=== PATIENT | female | born 1980 | race Caucasian/White ===

== ENCOUNTER → 2022-10-08 13:50 | Outpatient (BNVA) | payer BC, MEDICAID, SELFPAY | PROVIDERS: PCP Nurse Practitioner Family; Visit Provider Internal Medicine | DX: E05.90 Thyrotoxicosis, unspecified without thyrotoxic crisis or storm (principal); Z86.39 Personal history of other endocrine, nutritional and metabolic disease; E06.3 Autoimmune thyroiditis; R73.03 Prediabetes | CPT/HCPCS: 36415; 84439; 84443; 84480 ==

== ENCOUNTER → 2022-11-05 13:23 | Outpatient (BNVA) | payer BC, MEDICAID, SELFPAY | PROVIDERS: PCP Nurse Practitioner Family; Referring Provider Nurse Practitioner Family; Visit Provider Orthopaedic Surgery | DX: M25.562 Pain in left knee (principal) | CPT/HCPCS: 73560; 73565 ==

== ENCOUNTER 2022-11-26 07:08 | Outpatient (CLI) | payer BC, MEDICAID, SELFPAY ==
--- NOTE | 2022-11-26 07:15 | MR_ITS ---
WS: [id number] MRI LEFT KNEE HISTORY: pain, pain medial knee. COMPARISON: Radiograph 11/05/2022 Anterior cruciate ligament: Intact. Posterior cruciate ligament: Intact. Medial collateral ligament: Intact. Posterior lateral corner structures: Intact. Medial menisci: Anterior horn is normal. In the periphery posterior horn of the medial meniscus there is an area of soft tissue thickening and increased T2 signal. This is adjacent fluid like tract. Lateral meniscus: Intact. Normal signal, size and shape. Extensor mechanism: Distal quadriceps tendon and patellar tendons are intact. Fluid and soft tissue: Very tiny amount of fluid in the suprapatellar bursa. There is a lobulated cys tic mass with septations extending over length of 4.4 cm along the medial posterior knee. This cystic mass has tract-like extension adjacent to the posterior horn the medial meniscus. This is not a typi amanuel location for a Camejo's cyst. Suspect this could be a ganglion or meniscal cyst associated with an occult tear of the posterior horn medial meniscus. There is an additional smaller cystic mass measur ing 1.0 cm adjacent to the medial femoral condyle. There is an additional tract which extends towards the joint space. This could be a separate component of a meniscal cyst or ganglion. Osseous and articular structures: Patellofemoral compartment: Normal. Medial compartment: No significant narrowing or loss of cartilage. Lateral compartment: No significant narrowing or loss of cartilage. MR/MR knee LT wo con* [id number] IMPRESSION: 1. Multiloculated cystic collection along the medial knee. Cystic components a re adjacent to the femoral condyle but also extend below the knee joint. There is a small fluid tract that extends towards the posterior horn of the medial me niscus. Suspect meniscal tear resulting in lobulated meniscal cyst. Not a typic al appearance or location for Camejo's cyst. Ganglion also within the differenti al. 2. There is thickening and increased T2 signal in the periphery of the posteri or horn medial meniscus. Suspicious for tear.
== END 2022-11-26 07:09 | disposition home or self-care (01) ==
LOC: RAD 07:14
PROVIDERS: PCP Nurse Practitioner Family; Visit Provider Orthopaedic Surgery
DX: M25.562 Pain in left knee (principal); M25.462 Effusion, left knee
CPT/HCPCS: 73721

== ENCOUNTER 2023-05-06 11:25 | Outpatient (CLI) | payer BC, MEDICAID, SELFPAY ==
[2023-05-06 12:38] LABS: Thyroid Stimulating Hormone 3.55 uIU/mL (0.27-4.20)
[2023-05-07 06:59] LABS: T3 Total 117 ng/dL (76-181)
== END 2023-05-06 11:26 | disposition home or self-care (01) ==
PROVIDERS: PCP Nurse Practitioner Family; Visit Provider Internal Medicine
DX: Z86.39 Personal history of other endocrine, nutritional and metabolic disease (principal); E05.00 Thyrotoxicosis with diffuse goiter without thyrotoxic crisis or storm; E05.90 Thyrotoxicosis, unspecified without thyrotoxic crisis or storm; E06.3 Autoimmune thyroiditis; R73.03 Prediabetes
CPT/HCPCS: 36415; 84439; 84443; 84480

== ENCOUNTER → 2023-07-24 09:01 | Outpatient (BNVA) | payer BC, MEDICAID, SELFPAY | PROVIDERS: PCP Nurse Practitioner Family; Visit Provider Family Medicine | DX: Z01.818 Encounter for other preprocedural examination (principal) | CPT/HCPCS: 80053; 81003; 85025 ==

== ENCOUNTER 2023-08-06 06:08 | Day surgery (SDC) | payer BC, MEDICAID, SELFPAY ==
[2023-08-06] VITALS (11 sets, daily range): BP systolic 117–153; BP diastolic 69–100; PULSE 72–92; RESP 13–24; TEMP 36.1–36.7; O2SAT 98–100; BMI 39.9
[2023-08-06] MEDS: ketorolac 30 mg/mL INJ IVP (06:38)
[2023-08-06] MEDS: sodium chloride 0.9% 1,000 ML 30 ML IV (06:38)
[2023-08-06] MEDS: scopolamine 1.5 Patch 1 PATCH TRANSDERMA (06:39)
[2023-08-06] MEDS: acetaminophen 1,000 MG/100 ML PIGGYBACK 400 MG IV (06:39)
--- NOTE | 2023-08-06 06:39 | P.ANESASSM_ITS ---
Pre-Anesthetic Assessment Height/Weight: Height 1.55 m Weight 95.889 kg Temp Pulse Resp BP Pulse Ox O2 Del Method 97.3 F L 72 16 153/100 100 Room Air 08/06/23 06:23 08/06/23 06:23 08/06/23 06:23 08/06/23 06:23 08/06/23 06:23 08/06/23 06:27 Operation Date: 08/06/23 07:00 Proposed Procedures p Knee Arthroscopy w/ partial Medial Menisectomy VERSUS REPAIR AND POSSIBLE CYST EXCISION(Left) - Devonte Sosa DO Familial anesthetic complications: None Was Beta Luisito taken within 24 hours: Yes Was Clonidine taken within 24 hours: N/A Last intake: Intake Last Liquid Date 08/05/23 Last Liquid Time 23:00 Last Solid Date 08/05/23 Last Solid Time 22:30 Social No alcohol and No tobacco Exam alert, oriented x 3, clear to auscultation bilaterally and regular rate & rhythm Airway Dentition: full Pulmonary asthma CV/HEM Hypertension GI Gastroesophageal Reflux Disease Metabolic Grave's disease Anesthetic Plan ASA status: 2 Anesthesia: General Risk of > 500 ml blood loss (7ml/kg in children): No Medications/Allergies Home Medications Medication Instructions Recorded Confirmed Last Taken Type albuterol sulfate 90 mcg/actuation 2 puff inhalation QID shortness of 01/29/22 08/05/23 07/06/23 History aerosol inhaler (Proventil HFA) breath atorvastatin 20 mg tablet 20 mg PO DAILY 01/29/22 08/06/23 08/05/23 History cetirizine 10 mg tablet (Zyrtec) 10 mg PO DAILY PRN allergies 01/29/22 08/06/23 08/05/23 History fluticasone propionate 50 2 spray intranasal DAILY 01/29/22 08/05/23 08/05/23 History mcg/actuation nasal spray,suspension (Flonase Allergy Relief) lisinopril 5 mg tablet 5 mg PO DAILY 01/29/22 08/06/23 08/05/23 History metoprolol succinate 25 mg 25 mg PO DAILY 01/29/22 08/06/23 08/05/23 History tablet,extended release 24 hr montelukast 10 mg tablet 10 mg PO DAILY 01/29/22 08/06/23 08/05/23 History pantoprazole 40 mg tablet,delayed 40 mg PO DAILY 01/29/22 08/06/23 08/05/23 History release topiramate 25 mg sprinkle capsule 25 mg PO BID 01/29/22 08/06/23 08/05/23 Histo ry (Topamax) Allergies Allergy/AdvReac Type Severity Reaction Status Date / Time Pork/Porcine Containing Allergy ADR-Vomitin Verified 08/05/23 12:01 Products g shellfish derived Allergy ADR-Vomitin Verified 08/05/23 12:01 g Flu Allergy Intermediate Vomiting Uncoded 07/24/23 08:46 Current Medications Generic Name Dose Route Start Last Admin Trade Name Freq PRN Reason Stop Dose Admin Sodium Chloride 1,000 mls @ 30 mls/hr 08/06/23 06:30 08/06/23 06:38 Sodium Chloride 0.9% IV 08/07/23 06:29 30 mls/hr .Q24H ROBYN Administration PFSH Anesthesia Medical History Essential (primary) hypertension Depression Asthma Headache disorder Low back pain Hyperlipidemia delivery delivered Anxiety ADD (attention deficit disorder) Surgical History History of bilateral tubal ligation Hx of tonsillectomy Family History Father Hypertension Mother Hypertension Hyperlipidemia Grandmother Breast cancer Social History Smoking and tobacco/nicotine status: never used tobacco/nicotine Second hand smoke exposure: No Alcohol intake: current Alcohol intake frequency: few times a week Alcohol type: beer Substance/Drug Use: never Adopted: No Caregiver/support person: No Lives independently: Yes Household members: spouse Housing: Manufactured/Mobile home Marital status: Number of children: 1 Highest education level completed: Bachelor's Degree service: No Current occupational status: employed Female Reproductive History Date of last menstrual period: 07/21/23 Data Anesthesia Cardiac Studies: No Data to Display
--- NOTE | 2023-08-06 06:58 | P.HP_ITS ---
Same Day Surgery H&P Indication for Procedure/HPI DATE OF PROCEDURE: August 06, 2023 CHIEF COMPLAINT/INDICATIONFOR SURGICAL PROCEDURE: Left knee medial meniscus tear PREOP DIAGNOSIS: Left knee medial meniscus tear PLANNED PROCEDURE: Operation Date: 08/06/23 07:00 Proposed Procedures p Knee Arthroscopy w/ partial Medial Menisectomy VERSUS REPAIR AND POSSIBLE CYST EXCISION(Left) - Devonte Sosa DO Medications/Allergies* Home Medications Medication Instructions Recorded Confirmed Type albuterol sulfate 90 mcg/actuation 2 puff inhalation QID shortness of 01/29/22 08/05/23 History aerosol inhaler (Proventil HFA) breath atorvastatin 20 mg tablet 20 mg PO DAILY 01/29/22 08/06/23 History cetirizine 10 mg tablet (Zyrtec) 10 mg PO DAILY PRN allergies 01/29/22 08/06/23 History fluticasone propionate 50 2 spray intranasal DAILY 01/29/22 08/05/23 History mcg/actuation nasal spray,suspension (Flonase Allergy Relief) lisinopril 5 mg tablet 5 mg PO DAILY 01/29/22 08/06/23 History metoprolol succinate 25 mg 25 mg PO DAILY 01/29/22 08/06/23 History tablet,extended release 24 hr montelukast 10 mg tablet 10 mg PO DAILY 01/29/22 08/06/23 History pantoprazole 40 mg tablet,delayed 40 mg PO DAILY 01/29/22 08/06/23 History release topiramate 25 mg sprinkle capsule 25 mg PO BID 01/29/22 08/06/23 History (Topamax) Allergies/Adverse Reactions Allergy/AdvReac Type Severity Reaction Status Date / Time Pork/Porcine Containing Allergy ADR-Vomitin Verified 08/05/23 12:01 Products g shellfish derived Allergy ADR-Vomitin Verified 08/05/23 12:01 g Flu Allergy Intermediate Vomiting Uncoded 07/24/23 08:46 Current Medications: Generic Name Dose Route Start Last Admin Trade Name Freq PRN Reason Stop Dose Admin Sodium Chloride 1,000 mls @ 30 mls/hr 08/06/23 06:30 08/06/23 06:38 Sodium Chloride 0.9% IV 08/07/23 06:29 30 mls/hr .Q24H ROBYN Administration Pertinent History/Comorbid Conditions* Medical History (Updated 04/05/23 @ 15:58 by Devonte Sosa DO) Essential (primary) hypertension Depression Asthma Headache disorder Low back pain Hyperlipidemia delivery delivered Anxiety ADD (attention deficit disorder) Surgical History (Updated 02/20/22 @ 13:17 by Arina Philip MD) History of bilateral tubal ligation Hx of tonsillectomy Family History (Updated 01/29/22 @ 14:06 by Magaly Rodriguez LPN) Hyperlipidemia Mother Breast cancer Grandmother Hypertension Father Mother Social History Smoking and tobacco/nicotine status: never used tobacco/nicotine Second hand smoke exposure: No Alcohol intake: current Alcohol intake frequency: few times a week Alcohol type: beer Substance/Drug Use: never Adopted: No Caregiver/support person: No Lives independently: Yes Household members: spouse Housing: Manufactured/Mobile home Marital status: Number of children: 1 Highest education level completed: Bachelor's Degree service: No Current occupational status: employed Pertinent Exam Findings alert, oriented x 3, operative site marked and procedure specific exam findings Examination of the left knee examination of the left knee she has tenderness over her medial joint line. Pain with Kory's Stable varus valgus stress Negative Seth's patella tracks well, negative apprehension or crepitus Recommendations Surgery/Procedure today Other Plans: Plan to proceed with the OR today for left knee diagnostic and surgical arthroscopy with partial medial meniscectomy versus repair and possible cyst ex cision. Patient understands incidence procedure risk benefits complication alternatives with surgery through shared decision making was proceed with surgical intervention. All questions answered. Coding Level of Care Code Acute Code for Lino Gamboa
[2023-08-06] MEDS: ceFAZolin 2,000 MG in sodium chloride 0.9% (plus) 50 ML 100 MG IV (07:01)
[2023-08-06 07:14] LABS: OR HCG Qualitative Urine Negative (Negative)
[2023-08-06] MEDS: lidocaine-epi 2% 20 mL INJ 40 ML INJECTION (07:33)
--- NOTE | 2023-08-06 08:25 | PM.OP ---
Operative Report Date of procedure: August 06, 2023 Surgeon: Devonte Sosa DO Chief Substation Operator: Akash Sosa PA-C: PA was necessary for assistance in this case with leg positioning to execute the procedure, assistance with instrumentation and meniscal fixation as well as to assist with wound closure and dressing application. Procedure: Preoperative diagnosis: Left knee medial meniscus tear Post-op diagnosis: Left?knee?medial meniscus tear Left?knee?extensive synovitis Procedure done: Left?knee?diagnostic and surgical arthroscopy medial meniscus repair (all inside technique) Left?knee?diagnostic and surgical arthroscopy with extensive synovectomy of the medial lateral and patellofemoral compartments Left?knee?diagnostic and surgical arthroscopy with bone marrow stimulation Surgeon: Devonte Sosa DO Estimated blood loss: 1 Tourniquet: No tourniquet was used IV fluids: See anesthesia record Complications: None Findings: See operative report narrative Condition: stable Disposition: same day Brief History: Patient is a 43-year-old female with Left?knee?pain.? Patient has failed conservative treatment who has been worked up for Left??knee?pain in the outpatient setting. MRI findings consistent with tear of the medial meniscus. talked in the office about treatment options patient would like to proceed with a Left?knee?diagnostic and surgical arthroscopy with partial medial meniscectomy versus repair. patient understand the ins and outs of the procedure the risk benefits complication alternatives to treatment options.? Understanding risk of surgery they agree to proceed with surgical intervention.? ? Understanding this and patient agree to proceed with surgical intervention all questions answered. Procedure: Patient seen and evaluated in the preoperative holding area.? Consent was reviewed and signed with patient.? Correct extremity was then marked.? Patient seen evaluated Anesthesia Department once cleared for surgery patient was taken back to the operative suite.? Patient was transported onto the OR table in supine position.? All bony prominences well-padded patient was appropriate secured to the bed.? Once appropriately anesthetized a nonsterile tourniquet was applied to the Left thigh.? The Left lower extremity was then prepped and draped in standard orthopedic fashion.? Final timeout performed.? Patient received appropriate preoperative antibiotics. Patient received local anesthetic of lidocaine with epinephrine into the joint as well as around the portal sites.? No tourniquet was inflated A standard 2 portal vertical incision diagnostic and surgical arthroscopy of the Left?knee?was performed in standard fashion.? Small stab incision made in the inferolateral portal introduced trocar and arthroscope into the suprapatellar pouch.? Suprapatellar pouch was subsequently visualized and found to have significant synovitis but no loose bodies.? Patient had noticeable significant inflamed infrapatellar fat pad and thickening hypertrophic within the patellofemoral compartment.? ?The medial gutter was free of loose bodies I then introduced the arthroscope into the medial compartment.? Within the medial compartment I then established my inferior medial working portal utilizing spinal needle outside in technique.? Once established I then visualized our articular cartilage of the medial compartment with a valgus stress.? Patient was found to have focal area on the medial femoral condyle of grade 2?3 rest of the articular cartilage medially was found to being grade 1 -2 . Next I inspected the meniscus.? With an arthroscopic probe was utilized to visual? all aspects of the meniscus.? Meniscal root was found to be intact.? Meniscus was found to be torn at the body to posterior horn junction.? Patient had a longitudinal tear on the periphery as a result a meniscal probe was inserted and this was found to have significant instability and as a result given her young age as well as cartilage preservation recommended meniscal repair I took an arthroscopic shaver debrided the tear site. I did end up utilizing a spinal needle to perform a fenestration of the MCL for slight increase in opening of the medial joint space in order to allow for limited chondral damage during my repair once this was done I then utilized Arthrex fiber stitch all inside technique I then subsequently placed 2 horizontal mattress stitches within the meniscus across the tear site these had excellent fixation and this was done per Arthrex is procedure and protocol. These had excellent fixation suture ends were then subsequently cut and meniscus was completely repaired I utilized a probe to confirm its excellent fixation. Next, I then performed a synovectomy of the medial compartment.? Given patient's chondromalacia there was areas of unstable articular cartilage and I subsequently performed a chondroplasty with arthroscopic shaver and thermal wand.? This completed medial compartment work. Next a introduced the arthroscope to the intercondylar notch.? PCL and ACL were intact. patient had significant thickening of the infrapatellar fat pad spanning into the medial and lateral compartments.? I then performed an extensive synovectomy with the arthroscopic shaver of the patellofemoral medial and lateral compartments as well as the intercondylar notch. Next I introduced the arthroscope into the lateral compartment the lateral compartment was found to have grade 1 chondromalacia.? Lateral meniscus was found to be intact.? The root was intact.? Given the grade 1 chondromalacia there is no unstable cartilage pieces to perform chondroplasty.? This completed my work of the lateral compartment and then performed a synovectomy of the lateral compartment.? Next of the arthroscope was placed into the lateral gutter and this was free of loose bodies.? Finally I reintroduced the arthroscope into the patellofemoral compartment.? 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 At this point I utilized arthroscopic shaver as well as thermal wand to perform extensive synovectomy of the patellofemoral compartment. This completed my work of the patellofemoral space.? Given patient had meniscal repair in order to provide appropriate healing I elected for bone marrow stimulation utilize thermal wand to debride off the soft tissue off the intercondylar notch in front of the ACL and subsequently utilized a drill with a K wire noted in place multiple drill holes within the inner condyle for bone marrow stimulation for healing. This was then subsequently withdrawn I then thoroughly irrigated the knee. I then switch my portal sites to the medial working portal.? Completed the rest of my synovectomy and the rest of my examination arthroscopy was normal. All fluid was suctioned from the joint.? ?All instruments were withdrawn.? Portal sites were closed with interrupted nylon suture.? portal sites were then covered with with Xeroform 4 x 4's ABD Curlex and Ramón wrap.? Patient was then placed into a Lynn hinged knee brace per meniscal repair protocol patient was then subsequently awakened from anesthesia and taken to PACU in stable condition. Disposition: Patient taken to PACU in stable condition recovering well.? Will receive appropriate discharge structure as well as pain medication postoperatively as well as? DVT prophylaxis.we will have patient follow-up with us in the office in 2 weeks.? Patient placed in [place] brace and will follow meniscal repair protocol . we will toe-touch weightbearing as tolerated to the Left lower extremity.? Patient understands and agrees with current plan.? All questions answered.
--- NOTE | 2023-08-06 08:32 | P.BOP_ITS ---
Date of Procedure: [August 06, 2023] Surgeon: [Dr. Sosa DO] Shell Freezing Machine Operator(s): [Akash Sosa PA-C] Procedure(s) performed: [Left knee surgical diagnostic arthroscopy with medial meniscus repair, bone marrow stimulation and extensive synovectomy] Findings of the procedure(s): [Medial meniscus tear, extensive synovitis] Estimated blood loss: [1 mL] Specimen(s) removed: [N/A] Post-operative diagnosis: [Medial meniscus tear, extensive synovitis procedure went well and as planned.]
--- NOTE | 2023-08-06 08:39 | P.PCN_ITS ---
PACU note Narrative: Patient is a 43-year-old female just underwent left knee surgical diagnostic arthroscopy. Pt transferred to PACU in stable condition. Dressing is dry. Hinged knee brace is on left leg. Pt is awake and alert. pt can wiggle toes and plantarflex and dorsiflex foot. pt able to perform straight leg raise, Femoral nerve intact. Distal pulses are palpable toes are warm and well- perfused. Cap refill is normal and under 2 seconds. Sensation to foot is intact. Pain is controlled. Exam: awake Disposition: discharged
[2023-08-06] MEDS: HYDROcodone-acetaminophen 5-325 mg Tablet 1 TAB PO (09:09)
--- NOTE | 2023-08-06 10:05 | ANE.PACU2 ---
Inpatient post-anesthesia follow up: Airway intact: Yes Vital signs: Temperature 98.1 F Pulse Rate 77 Respiratory Rate 18 Blood Pressure 131/73 Pulse Oximetry 99 Oxygen Delivery Me thod Room Air Oxygen Flow Rate 6 Fraction of Inspir ed Oxygen Hydration adequate: Yes Nausea and vomiting: No Pain level: 1 Mental status: Baseline
== END 2023-08-06 10:04 | disposition home or self-care (01) ==
PROVIDERS: Anesthesiology; PCP Nurse Practitioner Family; Visit Provider Student in an Organized Health Care Education/Training Program
PROC: (CPT 29870; principal; 2023-08-06 07:00)
DX: S83.242A Other tear of medial meniscus, current injury, left knee, initial encounter (principal); X58.XXXA Exposure to other specified factors, initial encounter; I10 Essential (primary) hypertension; E78.5 Hyperlipidemia, unspecified; K21.9 Gastro-esophageal reflux disease without esophagitis
CPT/HCPCS: 29876; 29881; 81025; 84703; C1713; J0131; J0690; J1885; J2250; J3010; J7030

== ENCOUNTER 2023-08-21 12:29 | Outpatient (CLI) | payer BC, MEDICAID, SELFPAY ==
[2023-08-21 14:20] LABS: Free T4 Free Thyroxine 1.08 ng/dL (0.82-1.77); Thyroid Stimulating Hormone 4.96 uIU/mL (0.27-4.20)
[2023-08-22 11:59] LABS: T3 Total 96 ng/dL (76-181)
== END 2023-08-21 12:30 | disposition home or self-care (01) ==
LOC: LAB 12:30
PROVIDERS: PCP Nurse Practitioner Family; Visit Provider Internal Medicine
DX: E05.00 Thyrotoxicosis with diffuse goiter without thyrotoxic crisis or storm (principal)
CPT/HCPCS: 36415; 84439; 84443; 84480

== ENCOUNTER → 2023-11-18 07:51 | Outpatient (BNVA) | payer BC, MEDICAID, SELFPAY | PROVIDERS: PCP Nurse Practitioner Family; Visit Provider Internal Medicine | DX: Z86.39 Personal history of other endocrine, nutritional and metabolic disease (principal); E05.90 Thyrotoxicosis, unspecified without thyrotoxic crisis or storm; E06.3 Autoimmune thyroiditis; E05.00 Thyrotoxicosis with diffuse goiter without thyrotoxic crisis or storm | CPT/HCPCS: 36415; 84439; 84443 ==

== ENCOUNTER → 2024-03-09 10:28 | Outpatient (BNVA) | payer BC, MEDICAID, SELFPAY | PROVIDERS: PCP Nurse Practitioner Family; Visit Provider Internal Medicine | DX: Z86.39 Personal history of other endocrine, nutritional and metabolic disease (principal); E05.90 Thyrotoxicosis, unspecified without thyrotoxic crisis or storm; E05.00 Thyrotoxicosis with diffuse goiter without thyrotoxic crisis or storm | CPT/HCPCS: 36415; 84439; 84443 ==

== ENCOUNTER → 2024-08-03 10:28 | Outpatient (BNVA) | payer BC, MEDICAID, SELFPAY | PROVIDERS: PCP Nurse Practitioner Family; Visit Provider Physician Assistant | DX: M94.262 Chondromalacia, left knee (principal); Z98.890 Other specified postprocedural states | CPT/HCPCS: 73560; 73565 ==

== ENCOUNTER 2024-09-03 12:38 | Outpatient (CLI) | payer BC, MEDICAID, SELFPAY ==
[2024-09-03 13:24] LABS: Free T4 Free Thyroxine 1.15 ng/dL (0.82-1.77); Thyroid Stimulating Hormone 5.47 uIU/mL (0.27-4.20)
== END 2024-09-03 12:39 | disposition home or self-care (01) ==
LOC: LAB 12:39
PROVIDERS: PCP Nurse Practitioner Family; Visit Provider Internal Medicine
DX: Z86.39 Personal history of other endocrine, nutritional and metabolic disease (principal); E05.90 Thyrotoxicosis, unspecified without thyrotoxic crisis or storm; E05.00 Thyrotoxicosis with diffuse goiter without thyrotoxic crisis or storm
CPT/HCPCS: 84439; 84443

== ENCOUNTER 2024-09-22 15:03 | Emergency (ER) | payer BC, MEDICAID, SELFPAY ==
[2024-09-22 15:06] VITALS: BP 146/95; PULSE 107; RESP 16; TEMP 36.8; O2SAT 100; BMI 41.5
--- NOTE | 2024-09-22 15:10 | XR_ITS ---
WS: [id number] XR ankle LT min 3V* [id number] REASON FOR EXAM: injury FINDINGS: Fracture dislocation of the left ankle. Oblique fracture through the distal fibula well above the level of the syndesmosis. Mild overriding and displacement of the fracture fragments with significant anterior angulation at the fracture site. A long fragment of fibula is displaced posteriorly superior to the fracture site. The fibular is disl ocated posteriorly in relation to the talus. Medial and posterior malleolar fractures of the tibia. The tibia is displaced anteriorly and laterally from the talus. XR/XR ankle LT min 3V* [id number] IMPRESSION: Fracture dislocation of the left ankle as above.
--- NOTE | 2024-09-22 15:13 | W.ED.EXTPRO ---
HPI - Extremity Problem General: Chief complaint: Extremity Injury, Lower Stated complaint: left ankle Time Seen by Provider: 09/22/24 15:08 Source: patient Mode of arrival: ambulatory Limitations: no limitations History of Present Illness: 44-year-old female who states that she had fell down the stairs injuring her left ankle she has obvious deformity to her left ankle she states she has severe pain unable to bear weight she denies any other injuries denies hitting her head denies any loss conscious denies any neck pain. Associated symptoms: Deny chest pain, fever(s) or rash Related Data Home Medications ?Medication ?Instructions ?Recorded ?Confirmed albuterol sulfate 90 mcg/actuation 2 puff inhalation QID shortness of 01/29/22 09/22/24 aerosol inhaler (Proventil HFA) breath atorvastatin 20 mg tablet 20 mg PO DAILY 01/29/22 09/22/24 cetirizine 10 mg tablet (Zyrtec) 10 mg PO DAILY PRN allergies 01/29/22 09/22/24 fluticasone propionate 50 2 spray intranasal DAILY 01/29/22 09/22/24 mcg/actuation nasal spray,suspension (Flonase Allergy Relief) metoprolol succinate 25 mg 25 mg PO DAILY 01/29/22 09/22/24 tablet,extended release 24 hr montelukast 10 mg tablet 10 mg PO DAILY 01/29/22 09/22/24 pantoprazole 40 mg tablet,delayed 40 mg PO DAILY 01/29/22 09/22/24 release topiramate 25 mg sprinkle capsule 25 mg PO BID 01/29/22 09/22/24 (Topamax) losartan 25 mg tablet 25 mg PO DAILY 08/03/24 09/22/24 fluticasone 100 mcg-salmeterol 50 1 inh inhalation BID 09/22/24 09/22/24 mcg/dose blistr powdr for inhalation (Advair Diskus) Previous Rx's ?Medication ?Instructions ?Recorded levothyroxine 50 mcg tablet See Rx Instructions PO .COMPLEX 09/09/24 #94 tabs hydrocodone 5 mg-acetaminophen 325 1 tab PO Q6H PRN pain #14 tabs 09/22/24 mg tablet Allergies Allergy/AdvReac Type Severity Reaction Status Date / Time Pork/Porcine Containing Allergy ADR-Vomitin Verified 09/09/24 07:43 Products g shellfish derived Allergy ADR-Vomitin Verified 09/09/24 07:43 g Flu Allergy Intermediate Vomiting Uncoded 09/09/24 07:43 Review of Systems Const: Denies: fever(s), chills, body aches or change in appetite ENMT: Denies: throat pain or dental pain Card: Denies: chest pain Resp: Denies: dyspnea GI: Denies: abdominal pain, nausea, vomiting or diarrhea Musc: Reports: extremity pain; Denies: neck pain or back pain Skin/Breast: Denies: rash Neuro: Denies: headache(s) PFSH ED PFSH: Medical History Essential (primary) hypertension Depression Asthma Headache disorder Low back pain Hyperlipidemia delivery delivered Anxiety ADD (attention deficit disorder) Surgical History History of bilateral tubal ligation Hx of tonsillectomy Family History Father Hypertension Mother Hypertension Hyperlipidemia Grandmother Breast cancer Social History Smoking and tobacco/nicotine status: never used tobacco/nicotine Second hand smoke exposure: No Alcohol intake: current Alcohol intake frequency: few times a week Alcohol type: beer Substance/Drug Use: never Adopted: No Caregiver/support person: No Lives independently: Yes Household members: spouse Housing: Manufactured/Mobile home Marital status: Number of children: 1 Highest education level completed: Bachelor's Degree service: No Current occupational status: employed Physical Exam Const: COMMON NORMALS: no acute distress, patient oriented x3 and healthy appearing HENMT: COMMON NORMALS: normocephalic and atraumatic HEAD & SCALP: normocephalic and atraumatic Eye: COMMON NORMALS: conjunctivae normal CONJUNCTIVA: Yes conjunctivae normal Neck/C-Spine: COMMON NORMALS: full ROM and supple Chest: COMMONS NORMALS: normal inspection of the chest Resp: COMMON NORMALS: normal respiratory effort Cardio: COMMON NORMALS: regular rate, regular rhythm and No murmurs present (Cardio) RATE: regular rate RHYTHM: regular rhythm GI: COMMON NORMALS: Normal to inspection, nondistended, normoactive bowel sounds present, Soft to palpation, non-tender and no masses PALPATION: Yes Soft to palpation Extremity: NARRATIVE EXTREMITY EXAM: Obvious deformity left ankle distal pulses sensation intact Neuro: COMMON NORMALS: patient oriented x3, moves all extremities and no focal motor deficits Psych: COMMON NORMALS: mental status grossly normal, Normal thought process present and cooperative THOUGHT PROCESS: Normal thought process present Skin: COMMON NORMALS: no rashes or lesions noted and no wounds GENERAL SKIN EXAM: no rashes or lesions noted Procedures Orthopedic Fracture Reduction Fracture #1: Time Out Performed: Yes Side: left Fracture Reduction Location: other (ankle) Analgesia: procedural sedation Post Reduction X-rays Demonstrate: anatomical reduction Post-reduction neuro exam: intact Post-reduction vascular exam: intact Splint Applied: Yes Patient Tolerated Procedure: well Procedural Sedation Indication: fracture/dislocation reduction ASA Class: I Time of Last PO Intake: 12:00 Preparation: air sampling and monitoring applied and pulse oximeter IV Propofol dose (mg): 100 Patient Tolerated Procedure: well Complications: none Interventions: oxygen applied Course Vital Signs: Vital signs: Vital Signs Temperature 98.3 F 09/22/24 15:06 Pulse Rate 81 09/22/24 15:52 Respiratory Rate 22 H 09/22/24 15:47 Blood Pressure 138/84 09/22/24 15:52 Pulse Oximetry 100 09/22/24 15:52 Oxygen Delivery Me thod Room Air 09/22/24 15:52 Oxygen Flow Rate 2 09/22/24 15:47 MDM - Extremity (Nontraumatic) Medical Decision Making Patient presents here with ankle fracture dislocation did sedate and reduce her ankle I spoke to Dr. Chavez who is reviewed images she is to follow-up this week likely have surgery on Friday we will prescribe her pain meds she is return if worsening she understands agrees to plan no other injuries noted Medical Records I reviewed the patient's medical records. Lab Data Radiology Impressions Ankle X-Ray 09/22/24 15:37 IMPRESSION: Post reduction of complex fracture dislocation of the left ankle as above. All radiology interpretation(s) finalized by discharge Discharge Plan Discharge Patient Disposition: Home Clinical Impression: Ankle fracture Qualifiers: Encounter type: initial encounter Fracture type: closed Laterality: left Qualified Code(s): S82.892A - Other fracture of left lower leg, initial encounter for closed fracture Condition: Stable Prescriptions: New hydrocodone-acetaminophen 5-325 mg tablet 1 tab PO Q6H PRN (Reason: pain) Qty: 14 0RF No Action losartan 25 mg tablet 25 mg PO DAILY atorvastatin 20 mg tablet 20 mg PO DAILY fluticasone propionate [Flonase Allergy Relief] 50 mcg/actuation spray,suspension 2 spray intranasal DAILY Rx Instructions: administer into each nostril metoprolol succinate 25 mg tablet extended release 24 hr 25 mg PO DAILY montelukast 10 mg tablet 10 mg PO DAILY pantoprazole 40 mg tablet,delayed release (DR/EC) 40 mg PO DAILY albuterol sulfate [Proventil HFA] 90 mcg/actuation HFA aerosol inhaler 2 puff inhalation QID topiramate [Topamax] 25 mg capsule, sprinkle 25 mg PO BID cetirizine [Zyrtec] 10 mg tablet 10 mg PO DAILY PRN (Reason: allergies) levothyroxine 50 mcg tablet See Rx Instructions PO .COMPLEX Qty: 94 1RF Rx Instructions: take 2 tablets on Sundays and 1 tablet Friday through Friday orally; fluticasone propion-salmeterol [Advair Diskus] 100-50 mcg/dose blister with device 1 inh INHALATION BID Discharge Orders: Discharge ED (Routine); Ordered 09/22/24 Ordered By: Veronica Box Referrals: Oni Chavez DPM [Physician] - 4-7 days Dayan Sim [Primary Care Provider] - Discharge Diet: Advance as tolerated Discharge Activity: Resume usual activity Patient Instructions: Ankle Fracture (ED) Print Language: Kiswahili Coding Level of Care Code ED Implementation Specialist Payroll for Lino Gamboa
[2024-09-22 15:24] VITALS: RESP 22
[2024-09-22] MEDS: morphine 4 mg/mL SDV 1 mL IVP (15:24)
[2024-09-22] MEDS: ondansetron 2 mg/ML SDV 2 mL 4 MG IVP (15:24)
--- NOTE | 2024-09-22 15:37 | XR_ITS ---
WS: [id number] XR ankle LT 2V [id number] REASON FOR EXAM: injury FINDINGS: Post reduction in cast of the previously described complex fracture dislocation of the ankle. Ankle mortise has been restored. Posterior malleolar fracture remains moderately displaced as does a large elongated fragment of the fibular fracture. The medial malleolar fractures appear in good apposition and alignment. XR/XR ankle LT 2V [id number] IMPRESSION: Post reduction of complex fracture dislocation of the left ankle as above.
[2024-09-22 15:47] VITALS: BP 132/62; BP 138/84; PULSE 82; PULSE 89; RESP 22; O2SAT 100
[2024-09-22 15:52] VITALS: BP 138/84; PULSE 81; O2SAT 100
[2024-09-22] MEDS: propofol 10 mg/mL SDV 20 mL 100 MG IVP (15:54)
--- NOTE | 2024-09-22 16:28 | DCPLANNER ---
messaged podiatry for er f/u
[2024-09-22 17:05] VITALS: BP 129/72; PULSE 85; O2SAT 100
== END 2024-09-22 17:08 | disposition home or self-care (01) ==
PROVIDERS: Emergency Provider Emergency Medicine; PCP Nurse Practitioner Family
DX: S82.892A Other fracture of left lower leg, initial encounter for closed fracture (principal); W10.9XXA Fall (on) (from) unspecified stairs and steps, initial encounter; E78.5 Hyperlipidemia, unspecified; I10 Essential (primary) hypertension
CPT/HCPCS: 27788; 36415; 73600; 73610; 94799; 96374; 96375; 99152; 99285; J2270; J2405; J2704

== ENCOUNTER → 2024-10-14 14:19 | Outpatient (BNVA) | payer BC, MEDICAID, SELFPAY | PROVIDERS: PCP Nurse Practitioner Family; Visit Provider Podiatrist Foot & Ankle Surgery | DX: Z98.890 Other specified postprocedural states (principal); Z87.81 Personal history of (healed) traumatic fracture | CPT/HCPCS: 73610 ==

== ENCOUNTER → 2024-10-28 14:14 | Outpatient (BNVA) | payer BC, MEDICAID, SELFPAY | PROVIDERS: PCP Nurse Practitioner Family; Visit Provider Podiatrist Foot & Ankle Surgery | DX: S82.852D Displaced trimalleolar fracture of left lower leg, subsequent encounter for closed fracture with routine healing (principal); X58.XXXD Exposure to other specified factors, subsequent encounter; Z98.890 Other specified postprocedural states | CPT/HCPCS: 73610 ==

== ENCOUNTER → 2024-11-11 14:15 | Outpatient (BNVA) | payer BC, MEDICAID, SELFPAY | PROVIDERS: PCP Nurse Practitioner Family; Visit Provider Podiatrist Foot & Ankle Surgery | DX: S82.832D Other fracture of upper and lower end of left fibula, subsequent encounter for closed fracture with routine healing (principal); Z98.890 Other specified postprocedural states; S82.302D Unspecified fracture of lower end of left tibia, subsequent encounter for closed fracture with routine healing; X58.XXXD Exposure to other specified factors, subsequent encounter | CPT/HCPCS: 73610 ==

== ENCOUNTER 2024-11-11 15:00 | Outpatient (CLI) | payer BC, MEDICAID, SELFPAY ==
[2024-11-11 16:00] LABS: Free T4 Free Thyroxine 1.09 ng/dL (0.82-1.77)
== END 2024-11-11 15:01 | disposition home or self-care (01) ==
PROVIDERS: PCP Nurse Practitioner Family; Visit Provider Internal Medicine
DX: E06.3 Autoimmune thyroiditis (principal); E05.00 Thyrotoxicosis with diffuse goiter without thyrotoxic crisis or storm; E05.90 Thyrotoxicosis, unspecified without thyrotoxic crisis or storm
CPT/HCPCS: 84439; 84443

== ENCOUNTER → 2024-11-25 10:46 | Outpatient (BNVA) | payer BC, MEDICAID, SELFPAY | PROVIDERS: PCP Nurse Practitioner Family; Visit Provider Podiatrist Foot & Ankle Surgery | DX: Z98.890 Other specified postprocedural states (principal); S82.852D Displaced trimalleolar fracture of left lower leg, subsequent encounter for closed fracture with routine healing; X58.XXXD Exposure to other specified factors, subsequent encounter | CPT/HCPCS: 73610 ==

== ENCOUNTER → 2024-12-09 14:04 | Outpatient (BNVA) | payer BC, MEDICAID, SELFPAY | PROVIDERS: PCP Nurse Practitioner Family; Visit Provider Podiatrist Foot & Ankle Surgery | DX: Z98.890 Other specified postprocedural states (principal); Z87.81 Personal history of (healed) traumatic fracture | CPT/HCPCS: 73610 ==

== ENCOUNTER → 2024-12-23 14:33 | Outpatient (BNVA) | payer BC, MEDICAID, SELFPAY | PROVIDERS: PCP Nurse Practitioner Family; Visit Provider Podiatrist Foot & Ankle Surgery | DX: Z98.890 Other specified postprocedural states (principal); S82.852D Displaced trimalleolar fracture of left lower leg, subsequent encounter for closed fracture with routine healing; X58.XXXD Exposure to other specified factors, subsequent encounter | CPT/HCPCS: 73610 ==

== ENCOUNTER → 2025-01-20 13:22 | Outpatient (BNVA) | payer BC, MEDICAID, SELFPAY | PROVIDERS: PCP Nurse Practitioner Family; Visit Provider Podiatrist Foot & Ankle Surgery | DX: Z98.890 Other specified postprocedural states (principal); S82.852D Displaced trimalleolar fracture of left lower leg, subsequent encounter for closed fracture with routine healing; X58.XXXD Exposure to other specified factors, subsequent encounter | CPT/HCPCS: 73610 ==

== ENCOUNTER → 2025-02-24 13:33 | Outpatient (BNVA) | payer BC, MEDICAID, SELFPAY | PROVIDERS: PCP Nurse Practitioner Family; Visit Provider Podiatrist Foot & Ankle Surgery | DX: M25.572 Pain in left ankle and joints of left foot (principal); Z98.890 Other specified postprocedural states; Z87.81 Personal history of (healed) traumatic fracture | CPT/HCPCS: 73610 ==

== ENCOUNTER 2025-02-24 14:04 | Outpatient (CLI) | payer BC, MEDICAID, SELFPAY ==
[2025-02-24 15:37] LABS: Free T4 Free Thyroxine 1.13 ng/dL (0.82-1.77); Thyroid Stimulating Hormone 4.17 uIU/mL (0.27-4.20)
== END 2025-02-24 14:05 | disposition home or self-care (01) ==
LOC: LAB 14:07
PROVIDERS: PCP Nurse Practitioner Family; Visit Provider Internal Medicine
DX: E06.3 Autoimmune thyroiditis (principal); E05.00 Thyrotoxicosis with diffuse goiter without thyrotoxic crisis or storm; E05.90 Thyrotoxicosis, unspecified without thyrotoxic crisis or storm
CPT/HCPCS: 36415; 84439; 84443